=== PATIENT | male | born 1955 | race Asian ===

== ENCOUNTER 2019-04-11 11:02 | Outpatient (CLI) | payer BC ==
[2019-04-11 20:17] LABS: BASOPHILS % (AUTO) 0.4 %; EOSINOPHILS % (AUTO) 0.3 %; HGB - HEMOGLOBIN 13.4 g/dL (14.0-18.0); MEAN CORPUSCULAR HGB CONC 36.4 g/dL (32.0-36.0); MEAN CORPUSCULAR VOLUME 90.6 fL (80.0-94.0); MEAN PLATELET VOLUME 13.1 fL (7.4-11.4); MONOCYTES # (AUTO) 0.7 10^3/uL (0.0-1.0); MONOCYTES % (AUTO) 7.5 %; NEUTROPHILS # (AUTO) 7.2 10^3/uL (1.5-6.6); NEUTROPHILS % (AUTO) 80.1 %; PLT - PLATELET COUNT 181 10^3/uL (130-450); RED BLOOD COUNT 4.06 10^6/uL (4.70-6.10); RED CELL DISTRIBUTION WIDTH 17.5 % (12.0-15.0)
[2019-04-11 21:01] LABS: ALBUMIN/GLOBULIN RATIO 0.8 (1.0-2.2); ALKALINE PHOSPHATASE 233 IU/L (42-121); ALT ALANINE AMINOTRANSFERASE 37 IU/L (10-60); AMYLASE 51 U/L (28-100); AST ASPARTATE AMINOTRANSFERASE 76 IU/L (10-42); BILIRUBIN,TOTAL 27.9 mg/dL (0.2-1.0); BUN - BLOOD UREA NITROGEN 10 mg/dL (6-20); CALCIUM 8.7 mg/dL (8.5-10.3); CARBON DIOXIDE - CO2 27 mmol/L (21-32); CHLORIDE 98 mmol/L (101-111); CHOLESTEROL 224 mg/dL; CREATININE 0.4 mg/dL (0.6-1.2); GFR - MDRD 219 (>89); GLUCOSE 83 mg/dL (70-100); HDL CHOLESTEROL < 5 mg/dL; LIPASE 57 U/L (22-51); SODIUM 134 mmol/L (135-145); TOTAL PROTEIN 6.9 g/dL (6.7-8.2); VLDL CHOLESTEROL 47 mg/dL
[2019-04-11 21:07] LABS: RBC MORPHOLOGY (MULTIPLE) NORMAL APPEARANCE (NORMAL)
[2019-04-11 21:08] LABS: PLATELET ESTIMATE, MANUAL NORMAL (130-450,000) (NORMAL); PLATELET MORPHOLOGY 1+ LARGE PLATELETS (NORMAL)
[2019-04-11 22:20] LABS: GLUCOSE, URINE (UA) 100 mg/dL (NEGATIVE); KETONES,URINE (UA) 15 mg/dL (NEGATIVE); LEUKOCYTE ESTERASE, URINE TRACE (NEGATIVE); NITRITE,URINE POSITIVE (NEGATIVE); OCCULT BLOOD,URINE NEGATIVE (NEGATIVE); PH,URINE 6.5 PH (5.0-7.5); PROTEIN,URINE 30 mg/dL (NEGATIVE); UROBILINOGEN,URINE 1 (NORMAL) E.U./dL (NORMAL)
[2019-04-11 22:38] LABS: BILIRUBIN,URINE LARGE (NEGATIVE); CLARITY,URINE HAZY (CLEAR); ICTOTEST,URINE POSITIVE
== END 2019-04-11 11:03 | disposition home or self-care (01) ==
LOC: LAB.S 11:02
PROVIDERS: ATTEND Registered Nurse
DX: R17 Unspecified jaundice (principal)
CPT/HCPCS: 36415; 80053; 80061; 81003; 82150; 83010; 83690; 83721; 84443; 85025

== ENCOUNTER 2019-04-11 21:01 | Emergency (ER) | payer BC | END 2019-04-11 22:01 | disposition home or self-care (01) | LOC: ED 21:01 | DX: Z53.9 Procedure and treatment not carried out, unspecified reason (principal) | CPT/HCPCS: 36415; 76700; 80053; 80061; 81003; 82150; 83010; 83690; 83721; 84443; 85025 ==

== ENCOUNTER 2019-04-11 21:13 | Outpatient (CLI) | payer BC ==
--- NOTE | 2019-04-11 22:54 | Ultrasound Report ---
Reason: JAUNDICE Procedure Date: 04/11/2019 Accession Number: [id number] / [id number] Procedure: US - Abdomen Complete CPT Code: Final Report FULL RESULT: EXAM: ABDOMEN ULTRASOUND EXAM DATE: 04/11/2019 09:34 PM. CLINICAL HISTORY: JAUNDICE. COMPARISON: None. TECHNIQUE: Real-time scanning was performed with static images obtained. FINDINGS: Liver: Heterogeneous echotexture. Nodular liver margin. Echogenic mass measuring 2.4 x 2.0 x 2.4 cm. 16.6 cm. Main portal vein flow: Hepatopetal. Gallbladder: Sludge in the gallbladder. No shadowing gallstones are seen. There is wall thickening at 8 mm. There is generalized tenderness, not specific to the gallbladder. Biliary System: Common bile duct measures up to 10 mm. Intrahepatic biliary dilatation is seen. Pancreas: Coarse echotexture. The duct is upper normal diameter at 3 mm. Kidneys: Right: 12 cm longitudinally. Cyst measuring 0.8 cm. No contour-deforming mass, stones, or hydronephrosis. Left: 11.1 cm longitudinally. Normal. No contour-deforming mass, stones, or hydronephrosis. Spleen: 12.5 cm. Upper normal size. Aorta and Inferior Vena Cava: Unremarkable where seen. Other: At least moderate ascites. IMPRESSION: 1. Heterogeneous echotexture of the liver with hemangioma measuring 2.4 cm. Additional liver lesions are difficult to exclude given heterogeneous echotexture. There is nodular liver margin consistent with cirrhosis. 2. Biliary dilatation with common duct measuring up to 10 mm. Borderline dilated pancreatic duct measuring 3 mm. MRCP could be obtained for further evaluation. 3. Sludge in the gallbladder with wall thickening at 8 mm. No gallstones are identified. Wall thickening may be related to cirrhosis and ascites. There is generalized abdominal tenderness, not specific to the gallbladder. 4. At least moderate ascites. RADIA
== END 2019-04-11 21:14 | disposition home or self-care (01) ==
LOC: DI 21:13
PROVIDERS: ATTEND Registered Nurse
DX: D18.03 Hemangioma of intra-abdominal structures (principal); K83.9 Disease of biliary tract, unspecified; K86.89 Other specified diseases of pancreas; K82.8 Other specified diseases of gallbladder; R18.8 Other ascites
CPT/HCPCS: 76700

== ENCOUNTER 2019-04-12 10:30 | Emergency (ER) | payer BC ==
[2019-04-12 11:08] LABS: BASOPHILS # (AUTO) 0.1 10^3/uL (0.0-0.1); BASOPHILS % (AUTO) 0.5 %; EOSINOPHILS % (AUTO) 0.2 %; LYMPHOCYTES # (AUTO) 1.2 10^3/uL (1.5-3.5); LYMPHOCYTES % (AUTO) 12.4 %; MEAN CORPUSCULAR HEMOGLOBIN 33.2 pg (27.0-31.0); MEAN CORPUSCULAR HGB CONC 36.5 g/dL (32.0-36.0); MEAN PLATELET VOLUME 12.5 fL (7.4-11.4); MONOCYTES # (AUTO) 0.8 10^3/uL (0.0-1.0); MONOCYTES % (AUTO) 8.3 %; NEUTROPHILS # (AUTO) 7.4 10^3/uL (1.5-6.6); PLT - PLATELET COUNT 169 10^3/uL (130-450); RED BLOOD COUNT 3.91 10^6/uL (4.70-6.10); RED CELL DISTRIBUTION WIDTH 17.9 % (12.0-15.0); WHITE BLOOD COUNT 9.5 x10^3/uL (4.8-10.8)
[2019-04-12 11:30] LABS: ALBUMIN 3.1 g/dL (3.2-5.5); ALBUMIN/GLOBULIN RATIO 0.8 (1.0-2.2); BILIRUBIN,TOTAL 28.1 mg/dL (0.2-1.0); CALCIUM 8.8 mg/dL (8.5-10.3); CREATININE 0.4 mg/dL (0.6-1.2)
--- NOTE | 2019-04-12 12:12 | ED Physician Documentation ---
History of Present Illness - Stated complaint Stated Complaint: MALE - Chief complaint Chief Complaint: Abd Pain - Additonal information Additional information: This is a 63-year-old male with a history of heavy alcohol use who presents with right upper quadrant abdominal discomfort, jaundice, and abdominal fullness. Patient speaks Romanian, history is obtained with use of a telephonic lace pinner as well as patient's family. He states that he stopped drinking a month ago because he started developing some upper abdominal discomfort, it has worsened over the last week and he has had yellowing of his eyes and skin. He has had some nausea as well. His abdomen feels more full than usual. He states that in [place] he was seen for liver issues in the past, but nothing like this. He is unable to tell me if he had any clear diagnoses around his liver. He is not established with a liver specialist here. They live in [place]. No fever. Review of Systems Constitutional: denies: Fever Nose: denies: Rhinorrhea / runny nose Cardiac: denies: Chest pain / pressure Respiratory: denies: Dyspnea GI: reports: Abdominal Pain, Nausea : denies: Dysuria Skin: reports: Other (Jaundice) Neurologic: denies: Generalized weakness PD PAST MEDICAL HISTORY - Past Medical History GI: Other (Alcoholic liver disease) - Allergies Allergies/Adverse Reactions: Allergies Allergy/AdvReac Type Severity Reaction Status Date / Time Penicillins Allergy Itching Verified 04/12/19 10:41 PD ED PE NORMAL - Vitals Vital signs reviewed: Yes - General General: Alert and oriented X 3 - HEENT HEENT: Other (Icteric sclera. Pupils equal round reactive to light) - Neck Neck: Supple, no meningeal sign - Cardiac Cardiac: RRR - Respiratory Respiratory: No respiratory distress, Clear bilaterally - Abdomen Abdomen: Other (Hepatomegaly. Mild tenderness in the right upper quadrant, otherwise abdomen is nontender. There is mild distention but his abdomen is not tense. No guarding.) - Extremities Extremities: No deformity - Neuro Neuro: Alert and oriented X 3 - Psych Psych: Normal mood Results - Vitals Vitals: Vital Signs - 24 hr 04/12/19 04/12/19 04/12/19 10:39 12:59 15:46 Temperature 36.4 C L Heart Rate 70 69 66 Respiratory 16 14 17 Rate Blood Pressure 118/69 107/73 101/71 O2 Saturation 100 100 98 04/12/19 17:00 Temperature Heart Rate 73 Respiratory 18 Rate Blood Pressure 102/69 O2 Saturation 99 Oxygen O2 Source Room air - Labs Labs: Laboratory Tests 04/12/19 04/12/19 04/12/19 11:04 11:04 11:04 WBC 9.5 RBC 3.91 L Hgb 13.0 L Hct 35.6 L MCV 91.0 MCH 33.2 H MCHC 36.5 H RDW 17.9 H Plt Count 169 MPV 12.5 H Neut # (Auto) 7.4 H Lymph # (Auto) 1.2 L [place] # (Auto) 0.8 Eos # (Auto) 0.0 Baso # (Auto) 0.1 Absolute Nucleated RBC 0.00 Nucleated RBC % 0.0 PT INR APTT Sodium 136 Potassium 3.8 Chloride 99 L Carbon Dioxide 27 Anion Gap 10.0 BUN 11 Creatinine 0.4 L Estimated GFR (MDRD) 219 Glucose 89 Calcium 8.8 Total Bilirubin 28.1 H Direct Bilirubin AST 77 H ALT 37 Alkaline Phosphatase 227 H Ammonia 18.6 Total Protein 7.0 Albumin 3.1 L Globulin 3.9 Albumin/Globulin Ratio 0.8 L Lipase 61 H Urine Color Urine Clarity Urine pH Ur Specific [place] Urine Protein Urine Glucose (UA) Urine Ketones Urine Occult Blood Urine Nitrite Urine Bilirubin Urine Urobilinogen Ur Leukocyte Esterase Ur Microscopic Review Urine Culture Comments 04/12/19 04/12/19 04/12/19 11:04 11:45 18:10 WBC RBC Hgb Hct MCV MCH MCHC RDW Plt Count MPV Neut # (Auto) Lymph # (Auto) [place] # (Auto) Eos # (Auto) Baso # (Auto) Absolute Nucleated RBC Nucleated RBC % PT 14.3 H INR 1.3 H APTT 36.1 H Sodium Potassium Chloride Carbon Dioxide Anion Gap BUN Creatinine Estimated GFR (MDRD) Glucose Calcium Total Bilirubin Direct Bilirubin 11.8 H AST ALT Alkaline Phosphatase Ammonia Total Protein Albumin Globulin Albumin/Globulin Ratio Lipase Urine Color DARK YELLOW Urine Clarity CLEAR Urine pH 6.5 Ur Specific [place] 1.010 Urine Protein TRACE Urine Glucose (UA) 100 H Urine Ketones 15 H Urine Occult Blood NEGATIVE Urine Nitrite NEGATIVE Urine Bilirubin LARGE H Urine Urobilinogen 1 (NORMAL) Ur Leukocyte Esterase NEGATIVE Ur Microscopic Review NOT INDICATED Urine Culture Comments NOT INDICATED - Rads (name of study) Ct abd/pelvis W Radiology: Other (Large 12 x 11 x 14 cm heterogeneously enhancing central hepatic mass which is associated with diffuse biliary dilatation, and narrow but patent portal veins, there is some mass-effect and narrowing on the IVC, satellite lesion within the right hepatic dome, ascites.) PD MEDICAL DECISION MAKING - ED course Complexity details: considered differential (Cholecystitis, choledocholithiasis, cholangitis, hepatitis, cirrhosis, alcoholic liver disease, electrolyte abnormality) ED course: Patient is nontoxic on arrival. He is jaundiced, he has some right upper quadrant tenderness, labs show no leukocytosis no fever or signs of infection, but he does have a highly elevated bilirubin at 28, along with the AST mild el evation of 77 and alk phos of 227. His INR is 1.3 his lipase is slightly elevated at 61. I reviewed his ultrasound from yesterday which showed some common bile duct dilatation at 8 mm, as well as sludge and edema of the gallbladder wall, which is more likely due to his ascites and liver disease than cholecystitis or choledocolithiasis given his overall clinical picture and pattern of LFT elevations. I called and spoke with Dr. Love hospitalist at [facility], as well as Dr. Portillo of GI in [place]. Dr. Portillo recommended further imaging and felt the patient was reasonable for transfer to a higher level of care. A CT with venous phase contrast was ordered after consultation with our radiologist, this reveals a large liver mass which is concerning for malignancy. Using a telephonic Cantonese lace pinner I spoke with patient and his daughter and explained these results and that he needed more work-up and further care. They agree with the plan for transfer to [place]. He was given Zofran for poor appetite and fluids for rehydration. He will be transferred via BLS. I updated Dr. Lvoe and he accepted patient for transfer. AFP and hepatitis panel pending at the time of transfer. Departure - Departure Disposition: 02 Transfer Acute Care Hosp Clinical Impression: Liver mass Condition: Good Discharge Date/Time: 04/12/19 19:18
[2019-04-12 12:26] LABS: INR 1.3 (0.8-1.2); PT - PROTHROMBIN TIME 14.3 secs (9.9-12.6)
[2019-04-12 12:33] LABS: PARTIAL THROMBOPLASTIN TIME 36.1 secs (24.9-33.3)
[2019-04-12] MEDS ORDERED: IOVERSOL 320 100 ML VIAL IVP ONE ×2 (15:33→16:17)
--- NOTE | 2019-04-12 16:59 | CT Report ---
Reason: Elevated bilirubin, concern for cancer Procedure Date: 04/12/2019 Accession Number: [id number] / [id number] Procedure: CT - Abdomen/Pelvis W CPT Code: Final Report FULL RESULT: EXAM: CT ABDOMEN AND PELVIS EXAM DATE: 04/12/2019 04:15 PM. CLINICAL HISTORY: Elevated bilirubin, concern for cancer. COMPARISONS: None. TECHNIQUE: Routine helical CT imaging was performed through the abdomen and pelvis. IV contrast: 90 cc Optiray 320. Enteric contrast: No. Reconstructions: Coronal and sagittal. In accordance with CT protocol optimization, one or more of the following dose reduction techniques were utilized for this exam: automated exposure control, adjustment of mA and/or KV based on patient size, or use of iterative reconstructive technique. FINDINGS: Imaged chest: Moderate atherosclerosis of the thoracic aorta. Liver: -- Large heterogeneously enhancing mass within the central right lobe of the liver with extension into the periphery of the left lobe measuring approximately 12 x 11 x 14 cm. There is diffuse biliary dilatation beyond the mass. The portal veins appear narrowed but patent. --There is a satellite lesion within the right hepatic dome measuring 1.5 cm which may represent metastatic disease. -- Feathery filling defect within the portal veins favored to represent mixing artifact rather than tumor thrombus. --The lesion causes significant mass-effect and narrowing of the IVC. --Large ascites. --Enlarged lymph nodes within the vincent hepatis concerning for metastatic disease. Gallbladder: Question sludge in the gallbladder. The gallbladder wall is top normal in thickness. Pancreas: Unremarkable. Spleen: Unremarkable. Adrenal glands: Unremarkable. Kidneys: No hydronephrosis or nephrolithiasis. The left kidney is otherwise unremarkable. There is a cyst within the upper pole of the right kidney. Urinary bladder: Unremarkable. Reproductive organs: Enlarged prostate. Bowel: Unremarkable. Stomach: Unremarkable. Appendix: Unremarkable. Miscellaneous: There is several portal systemic collaterals with engorgement of mesenteric veins including mesenteric veins extending into the left paracolic outer. No obvious evidence of active extravasation. No extraluminal gas. Aorta: Moderate aortic atherosclerosis. Normal in caliber. Bones: No acute fracture. No suspicious osseous lesions. Sidewalls: Unremarkable. IMPRESSION: 1. Large heterogeneously enhancing central hepatic mass measuring approximately 12 x 11 x 14 cm. There is diffuse biliary dilatation beyond the mass. The portal veins appear narrowed but patent. The lesion causes significant mass-effect and narrowing of the IVC. This should be considered cancer until proven otherwise. Recommend multiphase MRI liver and GI consultation for further evaluation. 2. There is a satellite lesion within the right hepatic dome measuring 1.5 cm which may represent metastatic disease. 3. Large ascites. 4. Other findings detailed above. RADIA
[2019-04-12 17:22] VITALS: BP 102/69
[2019-04-12] MEDS ORDERED: LACTATED RINGERS 500 ML IV STA (17:45)
[2019-04-12] MEDS ORDERED: ONDANSETRON 4 MG/2 ML VIAL IVP STA (17:45)
[2019-04-12 18:23] LABS: GLUCOSE, URINE (UA) 100 mg/dL (NEGATIVE); KETONES,URINE (UA) 15 mg/dL (NEGATIVE); LEUKOCYTE ESTERASE, URINE NEGATIVE (NEGATIVE); NITRITE,URINE NEGATIVE (NEGATIVE); OCCULT BLOOD,URINE NEGATIVE (NEGATIVE); PH,URINE 6.5 PH (5.0-7.5); PROTEIN,URINE TRACE mg/dL (NEGATIVE); UROBILINOGEN,URINE 1 (NORMAL) E.U./dL (NORMAL)
[2019-04-12 18:26] LABS: BILIRUBIN,URINE LARGE (NEGATIVE); CLARITY,URINE CLEAR (CLEAR); ICTOTEST,URINE POSITIVE
[2019-04-13 13:26] LABS: HEPATITIS A IGM NON-REACTIVE (NON-REACTIVE); HEPATITIS B SURFACE ANTIGEN REACTIVE (NON-REACTIVE); HEPATITIS C ANTIBODY NON-REACTIVE (NON-REACTIVE)
== END 2019-04-12 19:18 | disposition short-term general hospital (02) ==
LOC: ED 10:30
DX: R16.0 Hepatomegaly, not elsewhere classified (principal); R18.8 Other ascites; K70.9 Alcoholic liver disease, unspecified
CPT/HCPCS: 36415; 74177; 80053; 80074; 81003; 82105; 82140; 82248; 83690; 85025; 85610; 85730; 96361; 96374; 99284; 99285; J7120; Q9967; 81001; 82247; 87086

== ENCOUNTER 2019-04-12 18:44 | Outpatient (CLI) | payer BC | END 2019-04-12 18:45 | disposition short-term general hospital (02) | LOC: EMS 18:44 | PROVIDERS: ATTEND Surgery | DX: R16.0 Hepatomegaly, not elsewhere classified (principal); R10.11 Right upper quadrant pain | CPT/HCPCS: A0425; A0428 ==